=== PATIENT | male | born 1990 | race Caucasian/White ===

== ENCOUNTER 2020-06-05 08:07 | Emergency (ER) | payer BC ==
[~2020-06-05] VITALS: Ht 182.9 cm; Wt 97.5 kg
[2020-06-05] MEDS ORDERED: FLONASE 0.05%50 MCG NASAL (08:14)
[2020-06-05] MEDS ORDERED: MELATONIN5 MG SUBLING (08:15)
[2020-06-05 08:40] LABS: BASOPHILS 0.3 % (0.0-2.0); HEMATOCRIT 44.6 % (42.0-52.0); HEMOGLOBIN 15.4 gm/dL (14.0-18.0); LYMPHOCYTES 15.7 % (24.0-44.0); MCH 31.4 pg (26.0-34.0); MCHC 34.6 g/dL (28.0-37.0); MCV 90.7 fL (80.0-100.0); PLATELET COUNT 414 thou/uL (150-400); RBC 4.92 mil/uL (4.50-6.00); RDW 15.1 % (10.5-14.5); WBC 13.9 thou/uL (4.0-11.0)
[2020-06-05 08:44] LABS: CALCIUM 9.9 mg/dL (8.5-10.1); CREATININE 1.5 mg/dL (0.7-1.3); POTASSIUM 3.4 mmol/L (3.5-5.1)
[2020-06-05 08:50] LABS: ALBUMIN 4.9 g/dL (3.4-5.0); TOTAL BILIRUBIN 0.9 mg/dL (0.2-1.0); TOTAL PROTEIN 9.2 g/dL (6.4-8.2)
[2020-06-05 09:53] LABS: URINE BLOOD NEGATIVE (Negative); URINE CLARITY CLEAR; URINE COLOR YELLOW; URINE GLUCOSE-RANDOM* NEGATIVE (Negative); URINE KETONES 3+ (Negative); URINE LEUKOCYTES-REFLEX NEGATIVE (Negative); URINE NITRITE-REFLEX NEGATIVE (Negative); URINE PROTEIN (DIPSTICK) 2+ (Negative); URINE SPECIFIC GRAVITY >= 1.030 (1.005-1.035); URINE UROBILINOGEN 0.2 E.U./dl (0.2-1.0)
[2020-06-05 10:02] LABS: ICTOTEST (BILI CONFIRMATORY) Negative (Negative); URINE BILIRUBIN NEGATIVE (Negative)
[2020-06-05 10:04] LABS: URINE REDUCING SUBSTANCE NEGATIVE
[2020-06-05 10:11] LABS: BACTERIA-REFLEX 1-9 Few /HPF (None Seen); CRYSTALS None Seen /LPF (None Seen); HYALINE CASTS 0-3 Few /LPF (None Seen); SQUAMOUS None Seen /LPF (0-3); URINE RBC 0-2 Rare /HPF (0-2); URINE WBC-REFLEX 0-5 Rare /HPF (0-5)
[2020-06-05 10:41] LABS: BE(vivo) -3.3 mmol/L (-2 to +3); HCO3 20.8 mmol/L (22.0-26.0); PCO2 VENOUS 35.1 mmHg (41.0-51.0); PO2 VENOUS 58.3 mmHg (35.0-45.0)
[2020-06-05] MEDS ORDERED: ZOFRAN ODT4 MG PO ×3 (12:34→13:43)
[2020-06-05] MEDS ORDERED: FLEXERIL PO ×3 (12:35→13:43)
[2020-06-05 13:01] VITALS: BP 132/81
== END 2020-06-05 13:01 | disposition home or self-care (01) ==
LOC: ER 08:07
PROVIDERS: Emergency Medicine
DX: R10.9 Unspecified abdominal pain (principal); Z79.899 Other long term (current) drug therapy